=== PATIENT | female | born 1965 | race Caucasian/White ===

== ENCOUNTER 2018-04-10 22:39 | Inpatient (IN) ==
[2018-04-10] MEDS ORDERED: EPINEPHrine 1 MG/ML VIAL SUBCUT STA (23:49)
[2018-04-10] MEDS ORDERED: FAMOTIDINE 20 MG/2 ML VIAL IV STA (23:49)
[2018-04-10] MEDS ORDERED: methylPREDNISolone SOD SUC 125 MG/2 ML VIAL IV STA (23:49)
[2018-04-10] MEDS ORDERED: diphenhydrAMINE 50 MG/1 ML VIAL IV STA (23:49)
[2018-04-11] MEDS ORDERED: CLINDAMYCIN INJ 600 MG in PREMIX 1 EACH IV STA (01:18)
[2018-04-11 01:36] LABS: Basophils % 0.1 % (0.0-0.8); Hematocrit 40.9 VOL% (35.7-47.0); Hemoglobin 13.8 GM/DL (12.0-16.0); Immature Granulocytes % 0.6 %; Immature Granulocytes Absolute 0.11 #; Lymphocytes # 2.2 10*3/uL (1.4-4.0); Lymphocytes % 11.5 % (21.3-54.2); Mean Corpuscular HGB Conc 33.7 GM/DL (32-36); Mean Corpuscular Hemoglobin 32 PG (27-34); Mean Corpuscular Volume 95.1 FL (87-102); Mean Platelet Volume 10.2 FL (9.6-12.0); Monocytes % 5.2 % (1.7-12.7); Neutrophils # 15.9 10*3/uL (1.4-7.4); Neutrophils % 82.6 % (38.7-73.9); Platelet Count 225 T/CUMM (130-400); Red Cell Distribution Width 12.8 % (9.3-17.3); White Blood Count 19.2 T/CUMM (4-12)
[2018-04-11 02:05] LABS: Alanine Aminotransferase 25 U/L (13-56); Albumin 3.8 G/DL (3.4-5.0); Alkaline Phosphatase 58 U/L (45-117); Aspartate Amino Transferase 14 U/L (0-37); Bilirubin,Total < 0.39 MG/DL (0.2-1.0); Blood Urea Nitrogen 14 MG/DL (7-18); Calcium 8.4 MG/DL (8.5-10.1); Glucose 95 MG/DL (74-106); Osmolality,Calculated 281.3 MOS/KG (273-304); Potassium 3.6 MMOL/L (3.5-5.1); Sodium 141 MMOL/L (136-145); Total Protein 7.1 G/DL (6.4-8.3)
[2018-04-11 02:50] LABS: Sedimentation Rate-Westergren 20 MM/HR (0-30)
[2018-04-11] MEDS ORDERED: ONDANSETRON 4 MG/2 ML VIAL IV PRN (03:04)
[2018-04-11] MEDS ORDERED: ACETAMINOPHEN 325 MG TABLET PO PRN (03:04)
[2018-04-11] MEDS ORDERED: DOCUSATE SODIUM 100 MG CAPSULE PO PRN (03:14)
[2018-04-11] MEDS: diphenhydrAMINE 50 MG/1 ML VIAL IV SCH ×4 (05:48→23:42)
[2018-04-11] MEDS: MULTIVITAMIN (CENTRUM) TABLET PO SCH (08:33)
[2018-04-11] MEDS: ESCITALOPRAM 10 MG TABLET PO SCH (08:33)
[2018-04-11] MEDS: FAMOTIDINE 20 MG TABLET PO SCH ×2 (08:33→21:14)
[2018-04-11] MEDS: ROSUVASTATIN 10 MG TABLET PO SCH (08:33)
[2018-04-11] MEDS: ASPIRIN EC 81 MG TABLET PO SCH (08:33)
[2018-04-11] MEDS: METOPROLOL SUCCINATE XL 25 MG TABLET PO SCH (08:33)
[2018-04-11] MEDS: ESTROGENS (CONJ) 0.625 MG TABLET PO SCH (08:33)
[2018-04-11] MEDS: ENOXAPARIN 40 MG/0.4 ML SYRINGE SUBCUT SCH ×2 (08:34→11:11)
[2018-04-11] MEDS ORDERED: PANTOPRAZOLE 40 MG TABLET PO SCH (09:00)
[2018-04-11] MEDS ORDERED: PNEUMOCOCCAL VACCINE (23 VALENT) 0.5 ML VIAL IM ONE (09:00)
[2018-04-11] MEDS: methylPREDNISolone SOD SUC 40 MG/1 ML VIAL IV SCH ×2 (10:57→21:14)
[2018-04-11] MEDS: CLINDAMYCIN INJ 600 MG in PREMIX 1 EACH IV SCH ×2 (11:03→18:11)
[2018-04-11 11:08] LABS: Basophils % 0.1 % (0.0-0.8); Hematocrit 38.4 VOL% (35.7-47.0); Hemoglobin 12.7 GM/DL (12.0-16.0); Immature Granulocytes % 0.7 %; Lymphocytes # 0.6 10*3/uL (1.4-4.0); Lymphocytes % 4.1 % (21.3-54.2); Mean Corpuscular HGB Conc 33.1 GM/DL (32-36); Mean Corpuscular Hemoglobin 31 PG (27-34); Mean Corpuscular Volume 94.8 FL (87-102); Mean Platelet Volume 10.4 FL (9.6-12.0); Monocytes # 0.2 10*3/uL (0.11-0.8); Monocytes % 1.4 % (1.7-12.7); Neutrophils # 13.8 10*3/uL (1.4-7.4); Neutrophils % 93.7 % (38.7-73.9); Platelet Count 218 T/CUMM (130-400); Red Blood Count 4.05 MC/CUMM (3.8-5.5); Red Cell Distribution Width 12.9 % (9.3-17.3); White Blood Count 14.7 T/CUMM (4-12)
[2018-04-11 11:36] LABS: Hypochromasia Slight; Lymphocytes 2 % (20-55); Ovalocytes Slight; Platelet Estimate Adequate; Segmented Neutrophils 95 % (50-85); Total Cells Counted 100
[2018-04-11] MEDS ORDERED: ZALEPLON 5 MG CAPSULE PO SCH (21:00)
[2018-04-12] MEDS: CLINDAMYCIN INJ 600 MG in PREMIX 1 EACH IV SCH ×2 (03:04→11:43)
[2018-04-12] MEDS: diphenhydrAMINE 50 MG/1 ML VIAL IV SCH ×2 (06:14→12:11)
[2018-04-12] MEDS: FAMOTIDINE 20 MG TABLET PO SCH (09:31)
[2018-04-12] MEDS: ESTROGENS (CONJ) 0.625 MG TABLET PO SCH (09:31)
[2018-04-12] MEDS: methylPREDNISolone SOD SUC 40 MG/1 ML VIAL IV SCH (09:31)
[2018-04-12] MEDS: ASPIRIN EC 81 MG TABLET PO SCH (09:31)
[2018-04-12] MEDS: MULTIVITAMIN (CENTRUM) TABLET PO SCH (09:31)
[2018-04-12] MEDS: ROSUVASTATIN 10 MG TABLET PO SCH (09:31)
[2018-04-12] MEDS: ESCITALOPRAM 10 MG TABLET PO SCH (09:31)
[2018-04-12] MEDS: METOPROLOL SUCCINATE XL 25 MG TABLET PO SCH (09:31)
[2018-04-12] MEDS: ENOXAPARIN 40 MG/0.4 ML SYRINGE SUBCUT SCH (09:32)
[2018-04-12 12:08] VITALS: BP 135/78
== END 2018-04-12 12:18 | disposition home or self-care (01) | DRG 607 ==
LOC: N.ED 22:39 → SUATTDRO 04-11 03:04 → N.EDINP 04-11 03:04 → N.TELEN 04-11 04:08
PROVIDERS: ADMIT Hospitalist; ATTEND Internal Medicine